=== PATIENT | female | born 1965 | race Caucasian/White ===

== ENCOUNTER → 2021-04-25 | Outpatient (CLI) | payer OTHER ==
--- NOTE | 2021-05-09 11:20 | RAD ---
US BREAST LT 04/25/2021 8:02 AM INDICATION: Left breast mass. COMPARISON: Left breast ultrasound 04/03/2021 TECHNIQUE: Targeted sonographic evaluation of the left breast at the 2:00 position, 6 cm from the nip ple. FINDINGS: There is a mixed hyperechoic and hypoechoic mass without posterior characteristics measuring approxim ately 7 x 4 mm. Mass is parallel. Mass is not well-defined. Findings appear superficial and immediate ly deep to the skin surface. Findings appear to be probably benign most likely representing a hematom a with improving appearance since 04/03/2021. 6 month follow-up left breast ultrasound could be of [place] efit. IMPRESSION: Probably benign findings of the left breast. BI-RADS category: 3; Probably Benign Recommendations: Six-month follow-up left breast ultrasound. Electronically signed by: Mila Alejandre MD (05/09/2021 11:17 AM) [id number]
== END ==
LOC: US 08:10
PROVIDERS: ATTEND Nurse Practitioner Women's Health
DX: N63.20 Unspecified lump in the left breast, unspecified quadrant (principal)
CPT/HCPCS: 76641